=== PATIENT | female | born 1955 | race Caucasian/White ===

== ENCOUNTER 2024-01-27 12:10 | Day surgery (SDC) | payer MEDICARE, BC, SELFPAY ==
--- NOTE | 2024-01-21 08:52 | EKG12_ITS ---
Test Reason : PRE-OP Blood Pressure : / mmHG Vent. Rate : 054 BPM Atrial Rate : 054 BPM P-R Int : 208 ms QRS Dur : 088 ms QT Int : 444 ms P-R-T Axes : 003 -03 001 degrees QTc Int : 421 ms Sinus bradycardia Otherwise normal ECG Confirmed by GEM FOLEY, PATRICE ([id number]), medical transcription editor MADHAV NAVAS ([id number]) on 01/24/2024 11:46:44 AM Referred By: Yue King Confirmed By:PARTICE RABAGO MD
[2024-01-21 09:38] LABS: Hematocrit 42.4 % (37-47); Hemoglobin 14.2 g/dL (12.0-15.0); Mean Corp Hgb Conc 33.5 g/dL (32-36); Mean Corpuscular Hgb 32.6 pg (27.0-32.0); Mean Corpuscular Volume 97.2 fL (81-99); Mean Platelet Vol. 9.3 fl (6.2-12.0); Platelet Count 407 K/mm3 (150-450); RBC Distribution Width CV 13.3 % (11.6-14.6); RBC Distribution Width SD 48.1 fl (35.1-43.9); Red Blood Count 4.36 M/mm3 (4.2-5.4); White Blood Count 6.3 K/mm3 (4.4-11.0)
[2024-01-21 09:59] LABS: Anion Gap 8 (5-15); BUN 16 mg/dL (7-18); BUN/Creat Ratio 15.5 RATIO (10-20); Calcium,Total 9.9 mg/dL (8.5-10.1); Chloride 103 mmol/L (98-107); Creatinine, Serum 1.03 mg/dL (0.55-1.02); EST Glomerular Filtration Rate 57 mL/min (>60); Est Glom Filt Rate - Afr Amer 69 mL/min (>60); Glucose 76 mg/dL (74-106); Potassium 4.8 mmol/L (3.5-5.1); Sodium Level 139 mmol/L (136-145)
[2024-01-21 10:17] LABS: Thyroid Stim Hormone (TSH) 9.81 uIU/mL (0.358-3.74)
[2024-01-27] VITALS (8 sets, daily range): BP systolic 112–132; BP diastolic 68–74; PULSE 55–65; RESP 16–18; TEMP 36.2–36.6; O2SAT 99–100; BMI 23.9
[2024-01-27] MEDS: Lactated Ringers 1,000 ML 15 ML IV (12:48)
[2024-01-27] MEDS: Cefazolin 2 GM in 0.9% Normal Saline (100mL Bag) 100 ML IV (13:43)
--- NOTE | 2024-01-27 13:58 | DCINST_ITS ---
Discharge Instructions Diet Discharge Diet: No restrictions Activity Discharge Activity: Return to Normal Activity Dressing / Incision Call your doctor if you observe: Fever of 101 or Higher, Inability to urinate and Inability to have a bowel movement Follow Up Care Please Follow Up With: Yue King MD Test Results: Test results from this visit will be discussed in further detail at your follow- up appointment, if applicable. Discharge Plan Admission Attending Provider: Yue King Primary Care Provider: Pipo Zavala Discharge Orders/Prescriptions Prescriptions: Continued gabapentin 100 mg capsule 100 mg PO QHS PRN PRN (Reason: pain) gemfibrozil 600 mg tablet 600 mg PO DAILY levothyroxine 100 mcg tablet 100 mcg PO DAILY temazepam 15 mg capsule 15 mg PO QHS PRN PRN (Reason: insomnia) magnesium 250 mg tablet 250 mg PO DAILY multivitamin [Daily Multi-Vitamin] Tablet 1 tab PO DAILY cephalexin 250 mg capsule 250 mg PO QHS ascorbic acid (vitamin C) [C-1000] 1,000 mg tablet 1 g PO DAILY oxybutynin chloride 10 mg tablet extended release 24hr 10 mg PO DAILY PRN (Reason: TROUBLE URINATING) sucralfate [Carafate] 1 gram tablet 1 g PO PRN PRN (Reason: nausea and vomiting) Disposition Disposition (needs filled in before D/C Order can be placed): Home, Self Care
--- NOTE | 2024-01-27 13:59 | PCM.OPRPT ---
Report of Operation Date of Procedure: 01/27/24 Pre-Operative Diagnosis: Urinary tract infection Post-Operative Diagnosis: Same Surgery/Procedure Performed:: Cystoscopy, pelvic exam under anesthesia Surgeon: Yue King Type of Anesthesia: MAC Specimen's removed: None Description of Procedure: The patient is a 68-year-old female with a history of previous prolapse repairs and has been having urinary tract infections. She desired to proceed with cystoscopic evaluation under anesthesia. Informed consent was obtained. The patient was placed on the operating room table. She was appropriately secured and padded. Anesthesia monitored the head, neck, airway, IV access and vital signs throughout the case. Once anesthesia was appropriately administered, she was placed into dorsolithotomy position was prepped and draped in usual sterile fashion. Pelvic examination revealed stage I prolapse without any evidence of palpable mass, mesh or other foreign body. The cystoscope was inserted through the urethra under direct visualization into the urinary bladder. The bladder mucosa was visualized in its entirety finding no evidence of mass, erythema or foreign body. The ureteral orifices were located in the correct anatomic position in the area of the trigone. There was mild detrusor hypertrophy identified. At this time bladder was emptied and the cystoscope was removed. She was awakened and taken to the recovery room in good condition. There were no complications during this procedure. Grafts/Implants Used: None Complications None Admit VTE Documentation VTE Present on Admission: Yes VTE Mechan Device Prophylaxis: SCD's VTE Pharm Prophylaxis ordered?: No Reason prophylaxis not ordered:: Treatment Not Indicated
== END 2024-01-27 15:03 | disposition home or self-care (01) ==
LOC: SDC 12:11 → AC 12:13
PROVIDERS: Anesthesiology; PCP Physician Assistant; Referring Provider Urology; Visit Provider Urology
PROC: 0TBB8ZX Excision of Bladder, Via Natural or Artificial Opening Endoscopic, Diagnostic (ICD-10-PCS; CPT 52000; principal; 2024-01-27 14:00)
DX: N32.89 Other specified disorders of bladder (principal); N39.0 Urinary tract infection, site not specified; N39.46 Mixed incontinence; N81.2 Incomplete uterovaginal prolapse; N32.81 Overactive bladder; R35.1 Nocturia; N95.2 Postmenopausal atrophic vaginitis; N94.11 Superficial (introital) dyspareunia; E78.00 Pure hypercholesterolemia, unspecified; E07.9 Disorder of thyroid, unspecified; Z79.890 Hormone replacement therapy
CPT/HCPCS: 52000; 00910; 36415; 80048; 84443; 85027; 93005; J7120; J2405